=== PATIENT | female | born 2000 | race Caucasian/White ===

== ENCOUNTER 2022-05-25 22:53 | Emergency (ER) | payer BC ==
[~2022-05-25] VITALS: Ht 160 cm; Wt 113.4 kg
== END 2022-05-26 00:05 | disposition home or self-care (01) ==
LOC: ER 22:53
DX: J11.1 Influenza due to unidentified influenza virus with other respiratory manifestations (principal); R09.81 Nasal congestion; R04.0 Epistaxis; R05.9 Cough, unspecified
CPT/HCPCS: 99283